=== PATIENT | male | born 1980 | race Caucasian/White ===

== ENCOUNTER → 2021-05-28 | Day surgery (SDC) | payer OTHER ==
[~2021-05-28] MED LIST: Acetaminophen 500 MG TAB ONE; BAMLANIVIMAB 700 MG, ETESEVIMAB 700 MG/20 ML 1,400 MG in Sodium Chloride 0.9% 250 ML 25... IVPB SCH; diphenhydrAMINE 50 MG/ML VIAL ONE
== END ==
LOC: CSHSDC 15:26
PROVIDERS: ATTEND Internal Medicine Critical Care Medicine
DX: U07.1 COVID-19 (principal); Z23 Encounter for immunization
CPT/HCPCS: 96365; 96374; J1200; J7050; M0245; Q0245

== ENCOUNTER 2025-06-18 08:39 | Outpatient (CLI) | payer OTHER | END 2025-06-18 08:40 | disposition home or self-care (01) | LOC: CSHSLEEP 08:39 | PROVIDERS: ATTEND Internal Medicine Critical Care Medicine | DX: G47.33 Obstructive sleep apnea (adult) (pediatric) (principal) | CPT/HCPCS: 95800 ==